=== PATIENT | female | born 1995 | race Caucasian/White ===

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

== ENCOUNTER 2019-03-02 04:23 | Emergency (ER) | payer SELFPAY ==
[~2019-03-02] VITALS: Ht 167.6 cm; Wt 112.7 kg
[2019-03-02 04:35] VITALS: Ht 167.6 cm; Wt 112.7 kg
[2019-03-02] MEDS ORDERED: TRINESSA (04:36)
[2019-03-02] MEDS ORDERED: BUPROPION HCL75 MG (04:36)
[2019-03-02 05:05] LABS: APPEARANCE CLEAR (CLEAR); BILIRUBIN NEGATIVE (NEGATIVE); COLOR YELLOW (YELLOW); GLUCOSE NEGATIVE (NEGATIVE); HCG URINE NEGATIVE (NEGATIVE); KETONE NEGATIVE (NEGATIVE); NITRITE NEGATIVE (NEGATIVE); PROTEIN NEGATIVE (NEGATIVE); SPECIFIC GRAVITY 1.015 (1.005-1.020); UROBILINOGEN NORMAL (NORMAL)
[2019-03-02 05:07] LABS: BACTERIA MODERATE /hpf (NEGATIVE); EPITHELIAL CELLS 0-5 /hpf (0-5); MUCUS <1+ /lpf (NONE SEEN); RED CELLS - URINE 0-5 /hpf (0-5)
[2019-03-02 05:11] LABS: BASOPHILS 0.2 % (0-2); EOSINOPHILS 1.5 % (0-7); HEMATOCRIT 40.9 % (36.0-48.0); HEMOGLOBIN 13.7 g/dL (12-16); IMMATURE GRANULOCYTES 0.2 % (0-5); LYMPHOCYTES 28.4 % (15-50); MCH 27.8 pg (26.0-34.0); MCHC 33.5 g/dL (31.0-37.0); MEAN PLATELET VOLUME 10.7 fL (7.4-10.4); MONOCYTES 5.4 % (2-11); NEUTROPHILS 64.3 % (40-80); PLATELET COUNT 249 10x3/uL (130-400); RBC 4.93 10x6/uL (4.00-5.40); RDW 14.7 % (11.5-14.5); WBC 12.7 10x3/uL (4.8-10.8)
[2019-03-02 05:29] LABS: ALBUMIN 3.5 g/dL (3.4-5.0); ANION GAP 12.9 mmol/L (8-16); BILIRUBIN - TOTAL 0.14 mg/dL (0.2-1.3); CALCIUM 9.5 mg/dL (8.5-10.1); CARBON DIOXIDE 28.4 mmol/L (21.0-32.0); CREATININE - SERUM 1.1 mg/dL (0.6-1.3); POTASSIUM - SERUM 4.3 mmol/L (3.5-5.1); PROTEIN - SERUM 7.3 g/dL (6.4-8.2)
--- NOTE | 2019-03-02 06:16 | NUR ---
DR WELLER NOTIFIED AND REVIEWED PT'S BEHAVIOR AND ASSESSMENT RESULTS. PT IS A LOW RISK PER DR WELLER. DR WELLER STATED TO GIVE RESOURCES TO PT AT TIME OF DISCHARGE. NO FURTHER ORDERS AT THIS TIME. RESOURCES REVIEWED WITH PATIENT AND SHE VERBALIZED UNDERSTANDING.
[2019-03-02] MEDS ORDERED: OMNICEF300 MG PO (06:53)
[2019-03-02] MEDS ORDERED: HYDROCODON-ACE1 EAC7 PO (08:30)
[2019-03-02] MEDS ORDERED: FLAGYL500 MG PO (08:30)
[2019-03-02 09:01] VITALS: BP 128/80
== END 2019-03-02 09:03 | disposition home or self-care (01) ==
LOC: D.ER 04:23
PROVIDERS: Family Medicine
DX: N39.0 Urinary tract infection, site not specified (principal); N83.201 Unspecified ovarian cyst, right side; N76.0 Acute vaginitis; F17.200 Nicotine dependence, unspecified, uncomplicated

== ENCOUNTER 2019-03-05 00:24 | Emergency (ER) | payer SELFPAY ==
[~2019-03-05] VITALS: Ht 167.6 cm; Wt 113.6 kg
[~2019-03-05 00:24] MED LIST: BUPROPION HCL75 MG; FLAGYL500 MG PO; HYDROCODON-ACE1 EAC7 PO; OMNICEF300 MG PO; TRINESSA
[2019-03-05 00:28] VITALS: Ht 167.6 cm; Wt 113.6 kg
[2019-03-05] MEDS ORDERED: PERCOCET 5-3251 TAB PO (00:48)
[2019-03-05 02:05] VITALS: BP 122/79
== END 2019-03-05 02:06 | disposition home or self-care (01) ==
LOC: D.ER 00:24
DX: N83.201 Unspecified ovarian cyst, right side (principal)

== ENCOUNTER 2020-01-12 00:35 | Emergency (ER) | payer BC ==
[~2020-01-12] VITALS: Ht 167.6 cm; Wt 113.6 kg
[~2020-01-12 00:35] MED LIST changes: +PERCOCET 5-3251 TAB PO
[2020-01-12 00:50] VITALS: Ht 167.6 cm; Wt 113.6 kg
[2020-01-12] MEDS ORDERED: CYCLOBENZAPRINE10 MG PO (01:10)
[2020-01-12 01:44] VITALS: BP 115/71
== END 2020-01-12 01:45 | disposition home or self-care (01) ==
LOC: D.ER 00:35
DX: S39.012A Strain of muscle, fascia and tendon of lower back, initial encounter (principal)